=== PATIENT | male | born 1960 | race Caucasian/White ===

== ENCOUNTER 2018-09-23 13:55 | Emergency (ER) | payer SELFPAY ==
[2018-09-23 14:16] VITALS: BP 143/80
[2018-09-23] MEDS ORDERED: Loperamide 2 MG Cap PO STA (14:47)
[2018-09-23] MEDS ORDERED: Lactated Ringers 1,000 ML IV ONE (14:48)
[2018-09-23] MEDS ORDERED: Ondansetron 4 MG/2 ML SDV IVPUSH ONE (14:50)
--- NOTE | 2018-09-23 14:52 | EDM.PDOC ---
ED HPI GENERAL MEDICAL PROBLEM - General Chief Complaint: Abdominal Pain Stated Complaint: HAS DIARRHEA SINCE SATURDAY/LOWER BACK PAIN Time Seen by Provider: 09/23/18 14:23 Source of Information: Reports: Patient, RN Notes Reviewed History Limitations: Reports: No Limitations - History of Present Illness INITIAL COMMENTS - FREE TEXT/NARRATIVE: The patient states that he has had watery diarrhea since Saturday afternoon, 2018. He has had crampy abdominal pain on and off since then. He has had nausea , but no emesis. He reports a decreased urinary output. He has had a subjective fever. The patient denies eating any recent bad tasting or spoiled food. No similarly ill contacts. No recent antibiotics. No recent travel. No prior similar symptoms. The patient states that he has not tried any pwok-xqw-rvatmty or home remedies to treat his symptoms. The patient does not have a PCP. Abdominal Pain Score (Numeric/FACES): 5 - Related Data Allergies Allergy/AdvReac Type Severity Reaction Status Date / Time codeine Allergy Rash Verified 09/23/18 14:17 Home Meds: Home Meds Ondansetron [Zofran ODT] 1 tab PO Q8H PRN #10 tab.dis 09/23/18 [Rx] Past Medical History Musculoskeletal History: Reports: Fracture (left clavicle) - Past Surgical History HEENT Surgical History: Reports: Adenoidectomy, Tonsillectomy GI Surgical History: Reports: Hernia, Inguinal Musculoskeletal Surgical History: Reports: ORIF (left clavicle) Social & Family History - Tobacco Use Smoking Status *Q: Current Every Day Smoker Years of Tobacco use: 40 Packs/Tins Daily: 1 - Caffeine Use Caffeine Use: Reports: Coffee, Soda - Alcohol Use Alcohol Use History: Yes Date/Time of Last Drink Comment: Quit drinking 2014 - Recreational Drug Use Recreational Drug Use: No - Living Situation & Occupation Living situation: Reports: , with Spouse, with Family (6 grandchildren) Occupation: Employed (Construction) ED ROS GENERAL - Review of Systems Review Of Systems: ROS reveals no pertinent complaints other than HPI. ED EXAM, GI/ABD - Physical Exam Exam: See Below Exam Limited By: No Limitations General Appearance: Alert, WD/WN, No Apparent Distress Eyes: Bilateral: Normal Appearance, EOMI Ears: Normal External Exam, Hearing Grossly Normal Nose: Normal Inspection Throat/Mouth: Normal Inspection, Normal Lips, Normal Voice, No Airway Compromise Head: Atraumatic, Normocephalic Neck: Normal Inspection, Full Range of Motion Respiratory/Chest: No Respiratory Distress, Lungs Clear, Normal Breath Sounds, No Accessory Muscle Use, Other (Pectus excavatum) Cardiovascular: Normal Peripheral Pulses, Regular Rate, Rhythm, No Edema, No Gallop, No JVD, No Murmur, No Rub GI/Abdominal Exam: Normal Bowel Sounds, Soft, No Organomegaly, No Distention, No Abnormal Bruit, No Mass, Tender (Generalized, non-focal) (Male) Exam: Deferred Rectal (Males) Exam: Deferred Back Exam: Normal Inspection, Full Range of Motion. No: CVA Tenderness (L), CVA Tenderness (R) Extremities: Normal Inspection, Normal Range of Motion, No Pedal Edema, Normal Capillary Refill Neurological: Alert, Oriented, Normal Cognition, No Motor/Sensory Deficits Psychiatric: Normal Affect Skin Exam: Warm, Dry, Intact, Normal Color, No Rash Course - Vital Signs Last Recorded V/S: Last Vital Signs Temp 36.2 C 09/23/18 14:13 Pulse 70 09/23/18 14:13 Resp 16 09/23/18 14:13 BP 143/80 H 09/23/18 14:13 Pulse Ox 98 09/23/18 14:13 Orthostatic Blood Pressure [ 130/86 Standing] Orthostatic Blood Pressure [ 127/81 Supine] - Orders/Labs/Meds Labs: Laboratory Tests 09/23/18 09/23/18 Range/Units 15:10 15:10 WBC 6.83 (4.23-9.07) K/mm3 RBC 5.77 (4.63-6.08) M/mm3 Hgb 17.6 H (13.7-17.5) gm/L Hct 50.3 (40.1-51.0) % MCV 87.2 (79.0-92.2) fl MCH 30.5 (25.7-32.2) pg MCHC 35.0 (32.2-35.5) g/dl RDW Std Deviation 41.8 (35.1-43.9) fL Plt Count 159 L (163-337) K/mm3 MPV 10.4 (9.4-12.3) fl Neutrophils % (Manual) 58 (40-60) % Band Neutrophils % 3 (0-10) % Lymphocytes % (Manual) 32 (20-40) % Atypical Lymphs % 0 % Monocytes % (Manual) 7 (2-10) % Eosinophils % (Manual) 0 L (0.8-7.0) % Basophils % (Manual) 0 L (0.2-1.2) Platelet Estimate Adequate RBC Morph Comment Normal Sodium 135 L (136-145) mEq/L Potassium 3.7 (3.5-5.1) mEq/L Chloride 101 (98-107) mEq/L Carbon Dioxide 24 (21-32) mEq/L Anion Gap 13.7 (5-15) BUN 12 (7-18) mg/dL Creatinine 0.8 (0.7-1.3) mg/dL Est Cr Clr Drug Dosing 89.69 mL/min Estimated GFR (MDRD) > 60 (>60) mL/min BUN/Creatinine Ratio 15.0 (14-18) Glucose 84 (74-106) mg/dL Calcium 8.0 L (8.5-10.1) mg/dL Magnesium 1.8 (1.8-2.4) mg/dl Total Bilirubin 0.4 (0.2-1.0) mg/dL AST 28 (15-37) U/L ALT 42 (16-63) U/L Alkaline Phosphatase 64 (46-116) U/L Total Protein 7.8 (6.4-8.2) g/dl Albumin 3.6 (3.4-5.0) g/dl Globulin 4.2 gm/dL Albumin/Globulin Ratio 0.9 L (1-2) Meds: Medications Discontinued Medications Generic Name Dose Route Start Last Admin Trade Name Freq PRN Reason Stop Dose Admin Lactated Ringer's 1,000 mls @ 999 mls/hr 09/23/18 14:48 09/23/18 15:25 Ringers, Lactated IV 09/23/18 15:48 999 mls/hr .BOLUS ONE Administration Loperamide HCl 4 mg 09/23/18 14:47 09/23/18 15:27 Imodium PO 09/23/18 14:48 4 mg ONETIME STA Administration Ondansetron HCl 4 mg 09/23/18 14:50 09/23/18 15:27 Zofran IVPUSH 09/23/18 14:51 4 mg ONETIME ONE Administration - Re-Assessments/Exams Free Text/Narrative Re-Assessment/Exam: 09/23/18 14:50 By history and physical examination, the patient appears to have gastroenteritis , likely viral in etiology. I ordered orthostatics and blood work to make sure that he has not suffered any significant fluid or electrolyte shifts, and, in the meantime, the patient will receive loperamide, Zofran, and LR. I have not ordered any stool studies, however, if the patient is able to provide a diarrhea sample, I can add stool studies at that time. 09/23/18 15:49 The patient is not orthostatic. 09/23/18 16:27 Test results discussed with the patient. The patient does not have an elevated WBC count to suggest an infection, and he has no electrolyte abnormalities. He did not provide a stool sample. I believe he can safely be discharged home with a prescription for Zofran, and continue to take [id number] loperamide as needed for diarrhea. I would like him to stay adequately hydrated with Gatorade or Powerade, and eat a bland diet for the next day or two. Departure - Departure Time of Disposition: 16:28 Disposition: Home, Self-Care 01 Condition: Good Clinical Impression: Viral gastroenteritis - Discharge Information *PRESCRIPTION DRUG MONITORING PROGRAM REVIEWED*: Not Applicable *COPY OF PRESCRIPTION DRUG MONITORING REPORT IN PATIENT ANIBAL: Not Applicable Prescriptions: Ondansetron [Zofran ODT] 1 tab PO Q8H PRN #10 tab.dis PRN Reason: Nausea/Vomiting Instructions: Viral Gastroenteritis, Adult, Eymn-bd-Ccod Referrals: PCP,None [Primary Care Provider] - Forms: ED Department Discharge Additional Instructions: You were seen in the emergency room for nausea and watery diarrhea, with crampy abdominal discomfort on and off since 09/19/2018. Workup in the ER included blood work and positional blood pressure checks. Your entire workup was unremarkable. You are not dehydrated. No electrolyte abnormalities were found. You do not have an elevated white blood cell count to suggest infection. Based on your history, physical examination, and ER tests, you are most likely suffering from a viral gastroenteritis. Unfortunately, there are no medicines to get rid of the virus - it will have to run its course. You have been started on the antidiarrheal medicine loperamide (Imodium). Take 1 tablet after each loose bowel movement, to a maximum of 8 tablets within a 24- hour period. A prescription for the anti-nausea medicine Zofran has been sent to the [facility], located just south and across [address] from [facility]. Dissolve one tablet of Zofran on your tongue up to every 8 hours, as needed for nausea/vomiting. Stay adequately hydrated. Gatorade or Powerade are best. Avoid juice and milk. Eat a bland diet, such as rice, oatmeal, toast, etc, until you are feeling all better. If any other problems, please do not hesitate to return to the ER.
== END 2018-09-23 16:45 | disposition home or self-care (01) ==
LOC: JD.ED 13:55
DX: A08.4 Viral intestinal infection, unspecified (principal); F17.210 Nicotine dependence, cigarettes, uncomplicated; Z98.890 Other specified postprocedural states; Z88.5 Allergy status to narcotic agent
CPT/HCPCS: 36415; 80053; 83735; 85007; 85027; 96361; 96374; 99284; A9270; J2405; J7120

== ENCOUNTER 2023-02-01 23:22 | Emergency (ER) | payer SELFPAY ==
[2023-02-01] MEDS ORDERED: Sodium Chloride 0.9% 10 ML Syringe FLUSH PRN (23:44)
[2023-02-02 00:11] LABS: BASOPHILS ABSOLUTE AUTO 0.03 K/mm3 (0.01-0.08); BASOPHILS PERCENT AUTO 0.2 % (0.1-1.2); EOSINOPHILS ABSOLUTE AUTO 0.28 K/mm3 (0.04-0.54); EOSINOPHILS PERCENT AUTO 2.1 (0.8-7.0); HEMATOCRIT 42.5 % (40.1-51.0); HEMOGLOBIN 14.7 gm/dl (13.7-17.5); IMMATURE GRAN ABSOLUTE AUTO 0.03 K/mm3 (0.00-0.10); IMMATURE GRAN PERCENT AUTO 0.2 % (<=1.0); LYMPHOCYTES ABSOLUTE AUTO 2.55 K/mm3 (1.32-3.57); LYMPHOCYTES PERCENT AUTO 19.5 % (21.8-53.1); MEAN CORPUSCULAR HEMOGLOBIN 32.2 pg (25.7-32.2); MEAN CORPUSCULAR HGB CONC 34.6 g/dl (32.2-35.5); MEAN CORPUSCULAR VOLUME 93.2 fl (79.0-92.2); MEAN PLATELET VOLUME 10.4 fl (9.4-12.3); MONOCYTES ABSOLUTE AUTO 1.19 K/mm3 (0.30-0.82); MONOCYTES PERCENT AUTO 9.1 % (5.3-12.2); NEUTROPHILS ABSOLUTE AUTO 9.02 K/mm3 (1.78-5.38); NEUTROPHILS PERCENT AUTO 68.9 % (34.0-67.9); PLATELET COUNT,PLT 182 K/mm3 (163-337); RED BLOOD CELL COUNT 4.56 M/mm3 (4.63-6.08)
[2023-02-02 00:27] LABS: INR 0.98; PROTHROMBIN TIME 10.5 SECONDS (9.7-12.0)
[2023-02-02 00:28] LABS: D-DIMER QUANTITATIVE 0.38 mg/L (0.19-0.50)
[2023-02-02 00:31] LABS: ALANINE AMINOTRANSFERASE,ALT 28 U/L (16-63); ALBUMIN 3.5 g/dl (3.4-5.0); ALKALINE PHOSPHATASE 67 U/L (46-116); ANION GAP 11.9 (5-15); ASPARTATE AMNIOTRANSFERASE,AST 14 U/L (15-37); BILIRUBIN TOTAL 0.3 mg/dL (0.2-1.0); BLOOD UREA NITROGEN,BUN 22 mg/dL (7-18); BUN/CREATININE RATIO 27.5 (14-18); CALCIUM 8.5 mg/dL (8.5-10.1); CARBON DIOXIDE,CO2 29 mEq/L (21-32); CHLORIDE,CL 105 mEq/L (98-107); CREATININE 0.8 mg/dL (0.7-1.3); EST CRCL DRUG DOSING (CG) 85.42 mL/min; ESTIMATED GFR 101 mL/min (>60); GLUCOSE RANDOM 114 mg/dL (70-99); POTASSIUM,K 3.9 mEq/L (3.5-5.1); PROTEIN TOTAL,TP 6.9 g/dl (6.4-8.2); SODIUM,NA 142 mEq/L (136-145)
[2023-02-02 00:32] LABS: TROPONIN I HIGH SENSITIVITY < 4 pg/mL (<=76)
[2023-02-02 02:04] VITALS: BP 107/70; PULSE 63
== END 2023-02-02 01:53 | disposition home or self-care (01) ==
LOC: JD.ED 23:22
DX: R07.89 Other chest pain (principal); F17.210 Nicotine dependence, cigarettes, uncomplicated; Z88.5 Allergy status to narcotic agent; Z86.16 Personal history of COVID-19
CPT/HCPCS: 36415; 71045; 71045-26; 80053; 83735; 84484; 85025; 85379; 85610; 93005; 99285

== ENCOUNTER 2023-09-10 11:06 | Emergency (ER) | payer SELFPAY ==
[2023-09-10] MEDS: Amoxicillin/Clavulanate K 875-125 MG Tab PO ONE (11:50)
[2023-09-10] MEDS: Ketorolac 60 MG/2 ML SDV IM ONE (11:50)
[2023-09-10 12:38] VITALS: BP 150/70; PULSE 75
== END 2023-09-10 12:38 | disposition home or self-care (01) ==
LOC: JD.ED 11:06
DX: K05.10 Chronic gingivitis, plaque induced (principal); Z88.5 Allergy status to narcotic agent; Z86.16 Personal history of COVID-19; Z79.899 Other long term (current) drug therapy
CPT/HCPCS: 96372; 99282; A9270; J1885

== ENCOUNTER 2024-03-05 18:05 | Emergency (ER) | payer SELFPAY ==
[2024-03-05] MEDS: Ketorolac 30 MG/ML SDV IM ONE (19:17)
[2024-03-05 22:25] VITALS: BP 130/77; PULSE 54
== END 2024-03-05 22:22 | disposition home or self-care (01) ==
LOC: JD.ED 18:05
DX: M54.2 Cervicalgia (principal); Z86.16 Personal history of COVID-19; Z88.5 Allergy status to narcotic agent
CPT/HCPCS: 72125; 96372; 99283; J1885

== ENCOUNTER 2025-03-25 12:39 | Emergency (ER) | payer SELFPAY ==
[2025-03-25 12:54] VITALS: PULSE 54
[2025-03-25] MEDS ORDERED: Sodium Chloride 0.9% 10 ML Syringe FLUSH PRN (12:58)
[2025-03-25 13:29] LABS: BASOPHILS ABSOLUTE AUTO 0.1 K/mm3 (0.0-0.2); BASOPHILS PERCENT AUTO 0.7 % (0.0-1.0); EOSINOPHILS ABSOLUTE AUTO 0.4 K/mm3 (0.0-0.4); EOSINOPHILS PERCENT AUTO 3.8 % (0.0-6.0); IMMATURE GRAN ABSOLUTE AUTO 0.03 K/mm3 (0.00-0.05); IMMATURE GRAN PERCENT AUTO 0.3 % (0.0-0.4); LYMPHOCYTES ABSOLUTE AUTO 3.0 K/mm3 (1.0-4.8); LYMPHOCYTES PERCENT AUTO 32.5 % (24.0-44.0); MEAN PLATELET VOLUME 11.2 fl (9.4-12.4); MONOCYTES ABSOLUTE AUTO 0.9 K/mm3 (0.0-0.8); MONOCYTES PERCENT AUTO 9.3 % (0.0-8.0); NEUTROPHILS ABSOLUTE AUTO 4.9 K/mm3 (1.8-7.7); NEUTROPHILS PERCENT AUTO 53.4 % (41.0-71.0); NRBC ABSOLUTE 0.00 (0.00-0.02); NRBC PERCENT 0.0 % (0.0-0.2); PLATELET COUNT,PLT 175 K/mm3 (150-400); RED BLOOD CELL COUNT 5.22 M/mm3 (4.52-5.90); WHITE BLOOD CELL COUNT,WBC 9.11 K/mm3 (3.9-11.3)
[2025-03-25 13:51] LABS: A/G RATIO 1.1 (1-2); ALANINE AMINOTRANSFERASE,ALT 30 U/L (16-63); ASPARTATE AMNIOTRANSFERASE,AST 21 U/L (15-37); BILIRUBIN TOTAL 0.6 mg/dL (0.2-1.0); BLOOD UREA NITROGEN,BUN 11 mg/dL (7-18); CARBON DIOXIDE,CO2 28 mEq/L (21-32); CHLORIDE,CL 101 mEq/L (98-107); CREATININE 0.9 mg/dL (0.7-1.3); EST CRCL DRUG DOSING (CG) 74.03 mL/min; ESTIMATED GFR 97 mL/min (>60); GLUCOSE RANDOM 94 mg/dL (70-99); POTASSIUM,K 3.7 mEq/L (3.5-5.1); PROTEIN TOTAL,TP 7.7 g/dl (6.4-8.2); SODIUM,NA 137 mEq/L (136-145)
[2025-03-25 14:01] LABS: TROPONIN I HIGH SENSITIVITY < 4 pg/mL (<=76)
[2025-03-25 15:48] VITALS: BP 144/83
== END 2025-03-25 15:40 | disposition home or self-care (01) ==
LOC: JD.ED 12:39
DX: R07.89 Other chest pain (principal); R00.2 Palpitations; M25.551 Pain in right hip; F17.210 Nicotine dependence, cigarettes, uncomplicated; Z88.5 Allergy status to narcotic agent; Z79.899 Other long term (current) drug therapy; Z86.16 Personal history of COVID-19
CPT/HCPCS: 36415; 71046; 80053; 83735; 84484; 85025; 93005; 93246; 99285; A9270